=== PATIENT | male | born 1930 | race Caucasian/White ===

== ENCOUNTER 2017-09-07 20:21 | Emergency (ER) | payer MEDICARE ==
[~2017-09-07] VITALS: Ht 172.7 cm; Wt 92.9 kg
[2017-09-07] MEDS ORDERED: SODIUM CHLORIDE FLUSH 10ML SYR IVF ONE (20:30)
[2017-09-07 20:43] LABS: HEMATOCRIT 44.1 % (39.2-51.8); HEMOGLOBIN 14.8 g/dL (13.7-18.0); WHITE BLOOD COUNT 7.6 x10^3/uL (3.4-10)
[2017-09-07 20:55] LABS: ASPARTATE AMINO TRANSFERASE 22 U/L (15-37); BLOOD UREA NITROGEN 25 mg/dL (7-18)
[2017-09-07] MEDS ORDERED: LORazepam 2 MG/ML, 1ML IVPush ONE (22:00)
[2017-09-07] MEDS ORDERED: LORazepam 2 MG/ML, 1ML ONE (22:00)
[2017-09-07 22:04] VITALS: BP 152/87
== END 2017-09-07 22:49 | disposition home or self-care (01) ==
LOC: ED 22:20
DX: F03.90 Unspecified dementia, unspecified severity, without behavioral disturbance, psychotic disturbance, mood disturbance, and anxiety (principal); I10 Essential (primary) hypertension; R63.0 Anorexia; R10.84 Generalized abdominal pain; Z87.891 Personal history of nicotine dependence
CPT/HCPCS: 36415; 80053; 81003; 83690; 85025; 85610; 85730; 93005; 96374; 99285; J2060